=== PATIENT | male | born 1960 | race African-American/Black ===

== ENCOUNTER 2016-09-19 02:42 | Inpatient (IN) | payer OTHER ==
[~2016-09-19] VITALS: Ht 180.3 cm; Wt 83.0 kg
[~2016-09-19 02:42] MED LIST: GABAPENTIN300 M2 PO; OXYCODONE HCL E20 MG PO
--- NOTE | 2016-09-19 11:48 | Operative Report ---
Operative/Inv Procedure Report Surgery Date: 09/19/16 Name of Procedure: C3 4 C4 5 anterior cervical discectomy and fusion use of peek intervertebral biomechanical device use of vectra anterior plating system Use of autograft use of allograft Removal of old anterior instrumentation C5 6 Exploration of fusion C5 6 Use of microscope Fluoroscopic guidance Pre-Operative Diagnosis: Cervical spondylitic myelopathy Post-Operative Diagnosis: Same Estimated Blood Loss: 50ml to 100ml Surgeon/Rehabilitation Program Coordinator: Sam Ayers MD and REBEL MARIA MD Co-surgeon's Anesthesia: general endotracheal tube Operative/Procedure Note Note: After successful administration of general endotracheal anesthesia all lines tubes and monitors were placed by the anesthesia team, the patient positioned supine with his head gently extended. His shoulders and children were taped to facilitate radiographic exposure. We used the fluoroscope to plan the skin incision in the right anterior neck. The patient was then prepped and draped in usual standard fashion, a #15 blade was used to incise the right anterior neck was deepened with Bovie cautery to the platysma, which was divided. A sharp dissection was carried out to the deep cervical fascia, retracted the trachea and the esophagus medially and the carotid sheath laterally. The old plate was identified and denuded of soft tissue, the screws were removed and the plate was removed. The fusion mass was inspected and determined to be solid. We then dissected more cranially elevated and the longus coli bilaterally exposing the anterior cervical spine from C3 to c 6. There were exuberant osteophytes over 34, 45 disc spaces which were removed with a combination of Kerrison punch and Leksell bone rongeur. Columbia pins were inserted into the bodies of C4 and C5 under fluoroscopic guidance to facilitate in-line distraction of the disc space. We entered the disc space and performed a thorough discectomy using pituitaries curettes and Kerrison punches, all autograft was saved for graft material. We brought the microscope into the deep dissection using the high-speed drill to drill the Posterior osteophytes, the PLL was elevated and a thorough discectomy and spinal decompression was performed. After was satisfied with decompression of thecal sac was pulsatile and not deformed. We then remove the cartilaginous and bony endplates with a high-speed drill and curette and trialed a spacer. Under fluoroscopic guidance a 5 mm Bengal cage was inserted in the disc space was packed with morselized autograft and allograft. The steps repeated at the 3 /4 disc space. The Columbia pins removed the holes waxed with bone wax motors and sensors were stable throughout the placement of the cages. We then contoured the anterior vertebral bodies the timing drilled facilitate plate placement. A 34 mm Vectra plate was secured in place using 18 mm screws. All hardware was placed under fluoroscopic guidance. After the heart was placed another motors and sensors were checked which were stable. The wound was then inspected and meticulous hemostasis was obtained and through a separate stab incision a small Hemovac was placed. The retractors were removed and the wound was closed in layers. Using 3-0 interrupted Vicryls for the platysma and the deep dermis, and a 4.0 for the subcuticular. A dry sterile dressing was applied, at end the case all needle counts sponge and instruments were correct. The patient was taken to the recovery room in stable condition.
--- NOTE | 2016-09-19 12:27 | Operative Report ---
Operative/Inv Procedure Report Surgery Date: 09/19/16 Name of Procedure: 1. Exploration of prior C5/6 fusion 2. removal of C5/6 anterior instrumentation 3. C3/4, C4/5 ACDF with synthes PEEk Bengal interbody cages, autograft, DBM 4. Anterior C3-5 vectra plate/screws 5. use of the microscope Pre-Operative Diagnosis: C3/4, C4/5 stenosis, advanced Degenerative disc disease, myelopathy Post-Operative Diagnosis: same Estimated Blood Loss: less than 50ml Surgeon/Land Measurer: CANDACE DIAZ,Sam Santana MD Anesthesia: general endotracheal tube Monitors: neurophysiologic monitoring IV Fluids: 2400cc Implants: bengal cages x2, vectra anterior cervical plate/screws Urine Output: 400cc Drains: med HV Specimens: C3/4, 4/5 disc, prior instrumentation C5/6 Complications: none Condition: stable Operative Indication: Patient is a 56-year-old gentleman status post a prior C5 6 ACDF who presents with progressive right upper extremity weakness and bilateral hand paresthesias with loss of dexterity. Imaging of the cervical spine with MRI CT and x-ray demonstrates advanced degenerative disc disease at C3 4 and C4 5 above his previous C5 6 arthrodesis. A combination of disc osteophyte complexes at both levels results and a severe's of C4 5 stenosis with cord compression and a moderate stenosis at C3 4. C4 5 there appears to be a left central disc herniation superimposed on a chronic endplate changes contributing to the narrowing. In light of his clinical radiologic presentation, he now presents for decompression at C3 4 C4 5 and extension of the fusion with exploration of the previous fusion and removal of the instrumentation. Operative/Procedure Note Note: Patient was taken to the operating room. Appropriate patient identification and surgical timeout, the patient underwent the smooth induction of general endotracheal anesthesia without incident. Neurophysiologic monitoring leads were placed and baseline recordings were obtained. A Garcia catheter was sterilely inserted. DVT prophylaxis was utilized throughout the case. The patient was positioned supine on the operating table with a bump under the shoulders and the neck gently extended on a donut. The shoulders were retracted downward with tape. Following positioning monitoring was stable. Patient was given 12 g of IV Decadron and 1 g of IV vancomycin and preoperative prophylaxis. The right ventral neck was widely prepped and draped usual sterile fashion using povidone iodine solution. The C-arm was sterilely draped into the field and the C3 4, C4 5, and C5 6 interspaces and prior to mentation were identified. A transverse linear skin incision was marked in a pre-existing neck fold in the right anterior neck overlying the level of C4 5 with local anesthetic. Skin incision was made with a 10 blade knife. Dissection was carried down through subcutaneous tissue with the Bovie to the platysma. The platysma muscle was undermined elevated and divided. Subplatysmal planes were created rostrally and caudally. The medial aspect the sternocleidomastoid muscle was identified in the fascia incised and extended rostrally and caudally. Combination of digital and blunt dissection was used down to the prevertebral fascia. The trachea and esophagus were reflected medially and the carotid sheath was reflected laterally under hand-held retractors. The crossing omohyoid muscle was reflected caudally. The prevertebral fascia was swept off the ventral aspect of the vertebral bodies with a peanut. The previous anterior to mentation at C5 6 was identified and cleared of overlying soft tissue. Small amount of fusion bone overlying the right upper aspect was removed with a Leksell rongeur. The C5 6 venture plate was then removed. All 4 screws were passed off to the back table and the plate elevated with an angled curette. We then inspected the previous fusion at C5 6 and noted to be solid. Ventral osteophytes and bone excrescences from the fusion were smoothed with a combination a Leksell and the drill. We then extended our exposure rostrally to the levels of C3 4 and C4 5. The longus coli muscles were reflected bilaterally and self-retaining retractors were placed beneath the muscle. Significant overgrown osteophytes over the disc spaces were removed using combination the drill and Leksell rongeur and all bone was saved for subsequent arthrodesis. First focused our attention to the level of C4 5. The C4 5 disc space was incised with a 15 blade knife. Superficial discectomy performed with small straight and angled curettes and pituitary rongeurs. Norwood pins were placed within the C4 and C5 vertebral bodies under direct and fluoroscopic guidance and the disc space was gently distracted. Discectomy was completed. We used the disc space electric organ inspector and repairer at further increase intervertebral heights to the posterior aspect of the vertebral bodies and the Norwood retractor was cured. Discectomy was then completed under the operating microscope. The disc was removed down to the posterior longitudinal ligament and was noted to be somewhat more bulky to the patient's left side. Endplate osteophytes were resected using combination the drill and Kerrisons. The posterior longitudinal ligament was noted to be hypertrophic. This was gently elevated with a small angled curette and removed sequentially with 2 and 3 mm Kerrison rongeurs from neural foramen to neural foramen. The underlying dura Was nicely decompressed. The endplates of C4 and C5 were contoured with the drill to prepare them for arthrodesis and all the cartilaginous endplate was removed. After appropriate trials, a 5 mm Synthes Bengal peek cage was selected. This was filled with morcellated autograft from the osteophytectomy and DBM. The disc space was copiously irrigated and hemostasis secured with the FloSeal. The cage was carefully tamped into the C4 5 interspace under direct and fluoroscopic guidance and countersunk by approximately 2 mm and its final position confirmed visually and fluoroscopically noted to be excellent. The Norwood retractor was then released compressing the graft between the respective vertebral bodies and the C5 Norwood pin was removed. He was easily controlled with FloSeal. We next focused our attention to the C3 4 interspace. In an analogous fashion, the Norwood pin was placed in the C3 vertebral body and the disc space of C3 4 was gently distracted. Annulotomy was made with a 15 blade knife. Overlying osteophytes were resected. A discectomy was performed at C3 4 and a standard fashion under the microscope using small straight and angled curettes and pituitary rongeurs. Midas Basilio was also used at to thin out the posterior vertebral body osteophytes at the level of the spinal canal which receptively resected with a 2 mm Kerrison punch. The posterior longitudinal ligament was elevated and sequentially resected allowing excellent decompression of the underlying thecal sac. A significant osteophyte off the inferior aspect of C3 was further thinned with the drill and resected to allow an excellent decompression of the spinal canal from proximal foramen to proximal foramen. A small amount of venous epidural bleeding was easily controlled with FloSeal and irrigation. The endplates of C3 and 4 were prepared for arthrodesis and all the cartilaginous endplate was removed. They were drilled straight with the Midas Basilio. After appropriate trials, a second 5 mm Bengal cage was selected. This was filled with autograft and DBM gently tamped into the C3 4 interspace under direct and fluoroscopic guidance and countersunk by approximately 2 mm. Its final position was confirmed visually and fluoroscopically noted to be excellent. The Norwood retractor was then released compressing the graft between the respective vertebral bodies in the Norwood pins were removed. Bone bleeding was easily controlled with FloSeal and bone wax. We then focused our attention to placement of the anterior to mentation from C3 to C5. I with the soft tissue protected, the ventral aspect of the vertebral bodies were further drilled with a 5 mm jana bur to facilitate placement of the anterior plate. A 34 mm Vectra titanium plate was selected and provisionally placed from C3 to C5 with a plate-holding pin. The position of the plate was confirmed visually and fluoroscopically and noted to be excellent. Then affixed to the vertebral bodies in a standard fashion using a series of six 18 mm screws. Each screw was placed by piercing the bone with an awl and placing self drilling self-tapping screws. The screws were finally tightened deploying the locking mechanism at all 6 locations. Final AP and lateral x-rays were obtained and saved. The wound was copiously irrigated. Meticulous hemostasis was achieved using the bipolar prior to closure. A medium Hemovac was placed into the wound and secured to the skin with a 2-0 nylon suture. The platysma was reapproximated with interrupted 3-0 Vicryl suture. The subcutaneous tissue was closed in layers with interrupted 3-0 Vicryl suture in the dermis and a running 4-0 Vicryl subcuticular stitch in the skin. Wounds clean and dried. Steri-Strips and a sterile occlusive dressing was placed. The patient was placed in a hard cervical collar, awakened extubated, and taken to PACU in stable condition. He was noted to be moving all 4 extremities at the completion of the case. All sponge, needle, and instrument counts were correct at the completion of the procedure 3. Neurophysiologic monitoring was stable throughout the case. Findings: High grade stenosis with cord compression secondary to disc osteophyte complexes C4 5 greater than C3 4 Discharge Disposition: PACU
--- NOTE | 2016-09-19 14:26 | RADIOLOGY REPORT ---
EXAMINATION: FLUOROSCOPY CERVICAL SPINE IN OPERATING ROOM CLINICAL INFORMATION: C3-C4, C4-C5 fusion in OR. COMPARISON: CT of the cervical spine 09/16/2016. MRI of the cervical spine 08/28/2016. TECHNIQUE: Fluoroscopy was provided in the operating room. 3 spot views were obtained of the cervical spine in AP and lateral projections. FINDINGS: Fluoroscopy is performed during anterior cervical disc fusion from C3-C5. There is an anterior plate and screws in each of the vertebral bodies. There are interbody fusion devices as well. FLUOROSCOPY TIME: 0.8 minutes. DOSE: 2.30 mGy; 0.0749 mGym2. IMPRESSION: Fluoroscopy and spot films during C3-C5 anterior cervical disc fusion.
--- NOTE | 2016-09-19 16:14 | PN- Neurosurgical ---
Subjective Subjective: Post Op Note s/p acdf c4-c5 with removal of hardware c5-c6 Patient without new c/o. Pain is 7-8/10 at surgery site/neck. Denies difficulty breathing. No n/v. Tolerated applesauce and ice chips without difficulty swallowing. Asking for regular diet. Has not been OOB. Denies CP/SOB. Objective Vital Signs and I&Os Intake & Output 09/19 1600 09/19 0809/19 0000 09/18 1600 09/18 0809/18 0000 Intake Total Output Total Balance Patient 183 lb Weight Physical Exam: Gen: NAD, comfortable, A&Ox3. Sitting up in bed. Neck: Rowe collar in place. Dressing c/d/i. Hemovac drain in place with small amount of sanguinous drainage. Neck without increased swelling. Neuro: CN II-XII intact. BUE tooth polisher strength 5/5. Chest: CTAB, RRR Ext: No calve swelling/TTP. NV intact BLE. Current Medications: Current Medications Sig/Maya Start time Last Medication Dose Route Stop Time Status Admin Acetaminophen 650 MG Q4P PRN 09/19 1309 AC PO Acetaminophen 1,000 MG .STK-MED ONE 09/19 721 DC IV 09/19 722 Bisacodyl 10 MG DAILY NEEDED PRN 09/19 1309 AC ID Dexamethasone 12 MG .STK-MED ONE 09/19 721 DC IM 09/19 722 Diazepam 5 MG TID PRN 09/19 1559 AC PO Diazepam 5 MG Q8P PRN 09/19 1309 DC PO Docusate Sodium 100 MG BID 09/19 2200 AC PO Fentanyl Citrate 500 MCG .STK-MED ONE 09/19 720 DC IM 09/19 721 Hydromorphone HCl 2 MG .STK-MED ONE 09/19 720 DC IM 09/19 721 Midazolam HCl 2 MG .STK-MED ONE 09/19 720 DC IM 09/19 721 Ondansetron HCl 4 MG Q6P PRN 09/19 1309 AC IV Oxycodone/ 2 TAB Q4P PRN 09/19 1309 AC 09/19 Acetaminophen PO 1609 Patient Medication 1 UNIT ONE NR 09/19 1330 AC Teaching ED 09/19 1930 Ramelteon 8 MG AT BEDTIME PRN 09/19 1309 AC PO Remifentanil 5 MG .STK-MED ONE 09/19 07 DC IV 09/19 0723 Sodium Chloride 1,000 ML Q12H 09/19 1315 AC 09/19 IV 09/20 1314 1610 Trimethobenzamide HCl 200 MG Q6P PRN 09/19 1309 AC IM Vancomycin HCl 1,000 MG ONCE ONE 09/19 1200 DC Dextrose/Water 250 ML IV 09/19 1259 Zolpidem Tartrate 2.5 MG AT BEDTIME NEED.. 09/19 1309 AC PO Assessment/Plan Assessment/Plan 56yo M POD#0 s/p acdf c4-c5 with removal of hardware c5-c6. Patient stable. - Pain control - continue Rowe collar at all times - Continue HV drain to mechanical suction - PRN Valium for spasms - Mechanical soft diet - ALPS - I/O's - OOB as desired with assist first time - abx while drain in place - Likely home in a.m. Core Measures/Miscellaneous Venous Thromboembolism VTE Risk Factors: Age > 40, Surgery VTE Contraindications: No Contraindications VTE Prophylaxis Ordered Inpt: Mech & Pharm VTE Diagnosis: No Beta Aliyah Is Beta Aliyah a Home Med? No Antibiotics Is Patient on Antibiotics? Yes If Yes: prophylaxis
[2016-09-19] MEDS ORDERED: COLACE100 M1 PO (16:15)
[2016-09-19] MEDS ORDERED: VALIUM5 M2 PO (16:15)
[2016-09-19] MEDS ORDERED: PERCOCET 5-3251 EACH PO (16:15)
--- NOTE | 2016-09-19 16:20 | Patient Discharge Instructions ---
Discharge Instructions General Discharge Information You were seen/treated for: Cervical spondylitic myelopathy You had these procedures: 09/19/16 C3 4 C4 5 anterior cervical discectomy and fusion use of peek intervertebral biomechanical device use of vectra anterior plating system Use of autograft use of allograft Removal of old anterior instrumentation C5 6 Exploration of fusion C5 6 Use of microscope Fluoroscopic guidance Watch for these problems: Redness, swelling, fever, purulent drainage, signs of infection. Difficulty swallowing or breathing. Decreased sensation, numbness, tingling in BUE. Excessive pain. Uncontrolled bleeding. Chest pain. Shortness of breath. Do not soak the wound: Yes No bath, but you may shower: Yes Other wound care: Daily dry dressing changes 48 hours after surgery. Special Instructions: Follow Dr. Babcock's provided instructions Diet Continue normal diet: Yes Activity Full Activity/No Limits: No Pounds, do NOT lift more than: 5 Other activity limits: No strenuous activity and/or exercise. Acute Coronary Syndrome Inclusion Criteria At DC or during hospital stay patient has or had the following: ACS DIAGNOSIS No Discharge Core Measures Meds if any: Prescribed or Continued at Discharge Meds if any: NOT Prescribed or Continued at Discharge Congestive Heart Failure Inclusion Criteria At DC or during hospital stay patient has or had the following: CHF DIAGNOSIS No Discharge Core Measures Meds if any: Prescribed or Continued at Discharge Meds if any: NOT Prescribed or Continued at Discharge Cerebrovascular accident Inclusion Criteria At DC or during hospital stay patient has or had the following: CVA/TIA Diagnosis No Discharge Core Measures Meds if any: Prescribed or Continued at Discharge Meds if any: NOT Prescribed or Continued at Discharge Venous thromboembolism Inclusion Criteria VTE Diagnosis No VTE Type NONE VTE Confirmed by (Test) NONE Discharge Core Measures - Per Current guidelines, there needs to be overlap - treatment for the first 5 days of Warfarin therapy. - If discharged on Warfarin prior to 5 days of - overlap therapy, the patient will need to be - assessed for post discharge needs including - *Post discharge parental anticoagulation - *Warfarin and/or parental anticoagulation education - *Follow up date to check INR post discharge At least 5 days overlap therapy as Inpatient No Meds if any: Prescribed or Continued at Discharge Note: Overlap Therapy is Warfarin and Anticoagulant Meds if any: NOT Prescribed or Continued at Discharge
[2016-09-19 17:00] VITALS: BP 148/98
[2016-09-19 19:54] VITALS: BP 140/88
--- NOTE | 2016-09-19 20:24 | NUR ---
LATE ENTRY: PATIENT ARRIVED TO FLOOR AT 1530 FROM PACU, S/P C3-4, C4-5 FUSION VS 98.7 96 20 148/98 92% ROOM AIR; HX OF MRSA A&O, LCTA, +BS, +CMS +PP HARD COLLAR IN PLACE, DSG TO ANTERIOR NECK, CDI, INDEPENDENT HEMOVAC TO NECK, SCANT SS DRAINAGE CHAPARRO REMOVED AT 1300, DTV BY 2100 (AT THIS TIME PT HAS VOIDED >500CC) IV #20 TO RW WITH NS RUNNING AT 80 ML/HR X 2L ORIENTED TO ROOM AND CALL GUILLERMO CONTINUE TO MONITOR
[2016-09-20 00:30] VITALS: BP 120/68
[2016-09-20 03:00] VITALS: BP 110/70
--- NOTE | 2016-09-20 06:54 | PN- Neurosurgical ---
Subjective Subjective: The patient was seen this morning postoperatively day #1. He reports that his pain is bearable and he is anxious to be discharged today. I explained to the patient's that will depend on how much his drain is putting out to whether or not we are able to remove that today. Otherwise he denies any significant numbness, tingling, or weakness in his extremities. He continues to have baseline tenderness in his fingertips well touching things for which Neurontin helps him. Objective Vital Signs and I&Os Vital Signs Date Time Temp Pulse Resp B/P Pulse O2 O2 Flow FiO2 Ox Delivery Rate 09/20 0300 98.0 75 18 110/70 92 Room Air 09/20 0030 99.6 76 18 120/68 90 Room Air 09/19 1954 98.5 101 20 140/88 94 09/19 1700 92 Room Air 09/19 1700 98.7 96 20 148/98 92 Room Air 09/19 1658 Room Air Room Air Intake & Output 09/20 0800 09/20 0000 09/19 1600 09/19 0800 09/19 0000 09/18 1600 Intake Total 760 4530 Output Total 1050 1310 Balance -290 3220 Intake, IV 640 3730 Intake, Oral 120 800 Output, 50 40 Drainage Output, Other 20 Output, Urine 1000 1250 Patient 183 lb 183 lb Weight Physical Exam: Gen.: Alert and in no obvious distress Skin: Warm and dry Neck: Surgical dressing is clean, dry, and intact. There is a Hemovac 1 holding suction with serosanguineous drainage in the collection chamber. Neck has some mild expected edema and no signs of significant hematoma. Extremities: Patient moves all 4 extremities with equal strength. Gross motor and sensory are intact. Bilateral lower extremities are warm without calf tenderness or significant edema. Assessment/Plan Assessment/Plan Assessment: 56-year-old male status post ACD fusion C3 through C5. The patient is progressing as expected, his pain is under adequate control, and his neurological exam is stable. Plan: Out of bed and ambulate with cervical collar in place Follow-up morning laboratory studies Keep RENARD to suction and continue antibiotics until RENARD is removed Continue current pain regiment GI and DVT prophylaxis Core Measures/Miscellaneous Venous Thromboembolism VTE Risk Factors: Age > 40, Surgery VTE Contraindications: No Contraindications VTE Prophylaxis Ordered Inpt: Mech & Pharm VTE Diagnosis: No Beta Aliyah Is Beta Aliyah a Home Med? No Antibiotics Is Patient on Antibiotics? Yes If Yes: prophylaxis
--- NOTE | 2016-09-20 07:36 | NUR ---
NURSING NOTE: ASSUMED CARE OF PT. DR MARIA AT BEDSIDE, OK TO CHANGE CMS CHECKS TO Q4. PT REQUESTING REGULAR DIET; OK PER DR MARIA; ORDER CHANGED IN COMPUTER. PT MEASURED FOR RENETTA GREGORIO; ORDERED BY FIRE MARSHAL REFINERY WILL PLACE WHEN ARRIVE TO FLOOR. HARD COLLAR IN USE, PT ENCOURAGED TO USE IS. WILL EMPTY DRAIN AT 1200PM PER DR MARIA REQUEST, CONT TO MONITOR.
[2016-09-20] MEDS ORDERED: PERCOCET 5-3251 EACH PO (07:51)
[2016-09-20] MEDS ORDERED: VALIUM5 M2 PO (07:51)
--- NOTE | 2016-09-20 07:54 | Surg Short-stay <48hrs Dis Sum ---
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 Exploration of prior C5/6 fusion 2. removal of C5/6 anterior instrumentation 3. C3/4, C4/5 ACDF with synthes PEEk [place] interbody cages, autograft, DBM 4. Anterior C3-5 vectra plate/screws 5. use of the microscope Summary/Significant Findings: Patient is a 56-year-old gentleman status post a prior C5 6 ACDF who presents with progressive right upper extremity weakness and bilateral hand paresthesias with loss of dexterity. Imaging of the cervical spine with MRI CT and x-ray demonstrates advanced degenerative disc disease at C3 4 and C4 5 above his previous C5 6 arthrodesis. A combination of disc osteophyte complexes at both levels results and a severe's of C4 5 stenosis with cord compression and a moderate stenosis at C3 4. C4 5 there appears to be a left central disc herniation superimposed on a chronic endplate changes contributing to the narrowing. In light of his clinical radiologic presentation, he now presents for decompression at C3 4 C4 5 and extension of the fusion with exploration of the previous fusion and removal of the instrumentation. Electively scheduled acdf c3-4, c4-5 by and on 09/19/16 went routinely. Hemovac drain left in place until the drainage was <20 mls in a shift, at which time it was removed and the patient was stable for discharge to home. Vancomycin was continued until the drain was removed. A hard collar was ordered pre-operatively for use post-operatively and for discharge to home. The patient will be going home with prescriptions for percocet and valium for pain and spasm, as recommended by . Condition at Discharge: stable Discharge Disposition: home or self care Discharge instructions provided to patient/family: Yes Post discharge follow-up plan: call 's office for follow up visit within 1 week, if not previously scheduled. Handout given with specific discharge instructions.
[2016-09-20 07:58] VITALS: BP 118/74
--- NOTE | 2016-09-20 08:24 | PN- Neurosurgical ---
Subjective Subjective: Pt reports significant improvement in upper extremity strength already and improved numbness in all four extremities. Objective Vital Signs and I&Os Vital Signs Date Time Temp Pulse Resp B/P Pulse O2 O2 Flow FiO2 Ox Delivery Rate 09/20 0758 97.5 68 18 118/74 92 Room Air 09/20 0300 98.0 75 18 110/70 92 Room Air 09/20 0030 99.6 76 18 120/68 90 Room Air 09/19 1954 98.5 101 20 140/88 94 09/19 1700 92 Room Air 09/19 1700 98.7 96 20 148/98 92 Room Air 09/19 1658 Room Air Room Air Intake & Output 09/20 1600 09/20 0809/20 0000 09/19 1600 09/19 0800 09/19 0000 Intake Total 760 4530 Output Total 1050 1310 Balance -290 3220 Intake, IV 640 3730 Intake, Oral 120 800 Output, 50 40 Drainage Output, Other 20 Output, Urine 1000 1250 Patient 83.007 kg Weight Physical Exam: Pt AF, VSS awake and alert sitting at side of bed, conversive voice clear, swallow intact without obvious dysphagia motor is clearly better than preop - residual right tricep weakness but improved bicep, hand reliability specialist, intrinsics bilat and sensory also much improved throughout ambulatory, voiding on own, ortiz removed incision is c,d,i , no palpable collection, mild swelling, in collar HV with 50cc serosanguinous dc over night Current Medications: Current Medications Sig/Maya Start time Last Medication Dose Route Stop Time Status Admin Acetaminophen 650 MG Q4P PRN 09/19 1309 AC PO Bisacodyl 10 MG DAILY NEEDED PRN 09/19 1309 AC NE Diazepam 5 MG TID PRN 09/19 1559 AC PO Diazepam 5 MG Q8P PRN 09/19 1309 DC PO Docusate Sodium 100 MG BID 09/19 220 AC 09/20 PO 0802 Gabapentin 600 MG TID 09/19 220 AC 09/20 PO 0651 Hydromorphone HCl 2 MG .STK-MED ONE 09/19 1213 DC IM 09/19 1214 Midazolam HCl 5 MG .STK-MED ONE 09/19 1259 DC IM 09/19 1300 Morphine Sulfate 2 MG Q3P PRN 09/19 1630 DC 09/19 IV 2205 Ondansetron HCl 4 MG Q6P PRN 09/19 1309 AC IV Oxycodone/ 2 TAB Q4P PRN 09/19 1309 AC 09/20 Acetaminophen PO 0613 Patient Medication 1 UNIT ONE NR 09/19 1330 DC Teaching ED 09/19 1930 Ramelteon 8 MG AT BEDTIME PRN 09/19 1309 AC 09/19 PO 2057 Sodium Chloride 1,000 ML Q12H 09/19 1315 DC 09/20 IV 09/20 1314 0612 Trimethobenzamide HCl 200 MG Q6P PRN 09/19 1309 AC IM Vancomycin HCl 1,000 MG Q12H 09/20 0800 AC Dextrose/Water 250 ML IV 09/21 0759 Vancomycin HCl 1,000 MG ONCE ONE 09/19 1200 DC 09/19 Dextrose/Water 250 ML IV 09/19 1259 1725 Zolpidem Tartrate 2.5 MG AT BEDTIME NEED.. 09/19 1309 AC PO Assessment/Plan Assessment/Plan Pt is POD1 s/p C3/4, 4/5 ACDF with exploration of C5/6 fusion with removal of old hardware and doing well. He already has improved subjective and objective neuro exam. Plan: -dc HV when less than 20-25cc per shift -cont vanco until drain out -cont to mobilize -pt to wear hard collar at all times -possible dc later today pending drain -if dc home, needs fu 2 weeks for wound check -dc instructions reviewed in anticipation of possible dc later today -percocet and valium prn for dc -keep wound clean and dry and covered for showers Core Measures/Miscellaneous Venous Thromboembolism VTE Risk Factors: Age > 40, Surgery VTE Contraindications: No Contraindications VTE Prophylaxis Ordered Inpt: Mech & Pharm VTE Diagnosis: No Beta Aliyah Is Beta Aliyah a Home Med? No Antibiotics Is Patient on Antibiotics? Yes If Yes: prophylaxis Attending MD Review Statement Attending Statement Attending MD Statement: examined this patient, discuss w/resident/PA/IT SUPPORT CONSULTANT, discussed w/nursing
--- NOTE | 2016-09-20 10:21 | NUR ---
NURSING NOTE: CALLED INTO ROOM BY PT. PT C/O "COUGHED UP BLOOD" SCANT BLOOD NOTED ON TISSUE, PT DENIES DISTRESS, J SERGEI JAVIER CALLED AND MADE AWARE, NO FURTHER ORDERS AT THIS TIME. NECK DRESSING C D I. HEMOVAC TO NECK INTACT. CONT TO MONIOTR. PT UPDATED AND TO CALL IF IT PERSISTS
[2016-09-20 11:37] VITALS: BP 116/68
--- NOTE | 2016-09-20 12:00 | NUR ---
NURSING NOTE: HEMOVAC DRAIN EMPTIED 20ML OF BLOODY DRAINAGE AT THIS TIME. DR MARIA AWARE. OK TO DC DRAIN AT THIS TIME PER Brigido LAND CALLED AND MADE AWARE. CONT TO MONITOR.
== END 2016-09-20 13:15 | DRG 472 ==
LOC: ENRESERVDT → ENRESERVTM → SDA 02:42 → ENPENDDIS 02:42 → 2NB 15:17
PROVIDERS: ADMIT Neurological Surgery
PROC: 0RG20A0 Fusion of 2 or more Cervical Vertebral Joints with Interbody Fusion Device, Anterior Approach, Anterior Column, Open Approach (ICD-10-PCS; principal; 2016-09-19)
PROC: 4A11X4G Monitoring of Peripheral Nervous Electrical Activity, Intraoperative, External Approach (ICD-10-PCS; principal; 2016-09-19)
PROC: 0RB30ZZ Excision of Cervical Vertebral Disc, Open Approach (ICD-10-PCS; principal; 2016-09-19)
PROC: 0PP304Z Removal of Internal Fixation Device from Cervical Vertebra, Open Approach (ICD-10-PCS; principal; 2016-09-19)
DX: M50.01 Cervical disc disorder with myelopathy, high cervical region (principal); B18.1 Chronic viral hepatitis B without delta-agent; M48.02 Spinal stenosis, cervical region; Z98.1 Arthrodesis status; F17.210 Nicotine dependence, cigarettes, uncomplicated
CPT/HCPCS: 36415; 72040; 87086; C1713; J0131; J1100; J2405; J3250; J3370; J7060